=== PATIENT | female | born 1990 | race Caucasian/White ===

== ENCOUNTER 2016-10-29 17:27 | Outpatient (CLI) | payer OTHER ==
[~2016-10-29 17:27] MED LIST: ZOFRAN8 MG PO
== END 2016-10-29 19:35 | disposition home or self-care (01) ==
LOC: GENOP 17:27
DX: Z34.83 Encounter for supervision of other normal pregnancy, third trimester (principal); Z3A.38 38 weeks gestation of pregnancy
CPT/HCPCS: 81001; G0463

== ENCOUNTER 2016-12-25 01:42 | Emergency (ER) | payer OTHER | END 2016-12-25 03:19 | disposition left against medical advice (07) | LOC: ER1 01:42 | DX: Z53.21 Procedure and treatment not carried out due to patient leaving prior to being seen by health care provider (principal) ==

== ENCOUNTER 2016-12-25 10:24 | Emergency (ER) | payer OTHER | END 2016-12-25 12:45 | disposition home or self-care (01) | LOC: ER1 10:24 | DX: O99.89 Other specified diseases and conditions complicating pregnancy, childbirth and the puerperium (principal); S93.401A Sprain of unspecified ligament of right ankle, initial encounter; K21.9 Gastro-esophageal reflux disease without esophagitis; Z88.8 Allergy status to other drugs, medicaments and biological substances; X50.1XXA Overexertion from prolonged static or awkward postures, initial encounter; Z3A.38 38 weeks gestation of pregnancy | CPT/HCPCS: 29515; 73610; 99283 ==

== ENCOUNTER 2016-12-27 07:07 | Inpatient (IN) | payer OTHER ==
[~2016-12-27] VITALS: Ht 152.4 cm; Wt 69.9 kg
[2016-12-28 03:06] LABS: HEMOGLOBIN 8.7 gm/dl (12.3-15.3)
== END 2016-12-29 12:59 | disposition home or self-care (01) | DRG 765 ==
LOC: OB 07:07
PROVIDERS: ADMIT Obstetrics & Gynecology
PROC: 3E0R3CZ (ICD-10-PCS; 2016-12-27)
PROC: 3E0234Z Introduction of Serum, Toxoid and Vaccine into Muscle, Percutaneous Approach (ICD-10-PCS; 2016-12-27)
PROC: 10D00Z1 Extraction of Products of Conception, Low, Open Approach (ICD-10-PCS; principal; 2016-12-27 07:30)
DX: O34.211 Maternal care for low transverse scar from previous cesarean delivery (principal); O75.3 Other infection during labor; N39.0 Urinary tract infection, site not specified; N85.8 Other specified noninflammatory disorders of uterus; O69.81X0 Labor and delivery complicated by cord around neck, without compression, not applicable or unspecified; O99.824 Streptococcus B carrier state complicating childbirth; O09.213 Supervision of pregnancy with history of pre-term labor, third trimester; O09.293 Supervision of pregnancy with other poor reproductive or obstetric history, third trimester; O99.283 Endocrine, nutritional and metabolic diseases complicating pregnancy, third trimester; E05.90 Thyrotoxicosis, unspecified without thyrotoxic crisis or storm; Z3A.39 39 weeks gestation of pregnancy; Z37.0 Single live birth; O99.613 Diseases of the digestive system complicating pregnancy, third trimester; K21.9 Gastro-esophageal reflux disease without esophagitis; O99.353 Diseases of the nervous system complicating pregnancy, third trimester; G43.909 Migraine, unspecified, not intractable, without status migrainosus; Z23 Encounter for immunization; O99.214 Obesity complicating childbirth; E66.9 Obesity, unspecified; Z68.30 Body mass index [BMI] 30.0-30.9, adult; Z87.442 Personal history of urinary calculi; Z79.899 Other long term (current) drug therapy; Z88.8 Allergy status to other drugs, medicaments and biological substances; Z83.3 Family history of diabetes mellitus; Z82.49 Family history of ischemic heart disease and other diseases of the circulatory system; Z82.0 Family history of epilepsy and other diseases of the nervous system
CPT/HCPCS: 36415; 81001; 82800; 85014; 85018; 85025; 90715; C9113; J0690; J2274; J2370; J2405; J2590; J2765; J3010; J7120

== ENCOUNTER 2021-06-11 20:32 | Emergency (ER) | payer OTHER ==
[~2021-06-11 20:32] MED LIST changes: +NORCO 5-325 TA1 EACH PO; +ZOFRAN4 MG PO
== END 2021-06-11 22:00 | disposition home or self-care (01) ==
LOC: ER1 20:32
DX: S93.602A Unspecified sprain of left foot, initial encounter (principal); W18.40XA Slipping, tripping and stumbling without falling, unspecified, initial encounter; Y92.009 Unspecified place in unspecified non-institutional (private) residence as the place of occurrence of the external cause
CPT/HCPCS: 73630; 99283